=== PATIENT | male | born 1985 | race Caucasian/White ===

== ENCOUNTER 2024-10-03 12:07 | Inpatient (IN) | payer OTHER ==
[2024-10-03 12:36] VITALS: BMI 25.4
[2024-10-03] MEDS ORDERED: MAG HYDROX/AL HYDROX/SIMETH 30 ML UNIT-DOSE CUP PO PRN (13:15)
[2024-10-03] MEDS ORDERED: BENZOCAINE/MENTHOL (CHLORASEPTIC ) LOZENGE MM PRN (13:15)
[2024-10-03] MEDS ORDERED: BENZONATATE 200 MG CAPSULE PO PRN (13:15)
[2024-10-03] MEDS ORDERED: NICOTINE POLACRILEX 2 MG GUM BUC PRN (13:15)
[2024-10-03] MEDS ORDERED: ACETAMINOPHEN 325 MG TABLET (FP) PO PRN (13:15)
[2024-10-03] MEDS ORDERED: BISMUTH SUBSALICYLATE 262 MG/15 ML BTL PO PRN (13:15)
[2024-10-03] MEDS ORDERED: MAGNESIUM HYDROX 2400MG/30ML ORAL SUSPENSION 30 ML CUP PO PRN (13:15)
[2024-10-03] MEDS ORDERED: guaiFENesin 600 MG TABLET.ER (FP) PO PRN (13:15)
[2024-10-03] MEDS ORDERED: ONDANSETRON *ODT* 4 MG TABLET SL PRN (13:15)
[2024-10-03] MEDS ORDERED: POLYETHYLENE GLYCOL (HEALTHYLAX) 3350 17 GM PACKET PO PRN (13:15)
[2024-10-03] MEDS ORDERED: NALOXONE (NARCAN) HCL 4 MG/0.1 ML SPRAY NS PRN (13:15)
[2024-10-03] MEDS ORDERED: IBUPROFEN 400 MG TABLET (FP) PO PRN (13:15)
[2024-10-03] MEDS ORDERED: LOPERAMIDE HCL 2 MG CAPSULE PO PRN (13:15)
[2024-10-03] MEDS ORDERED: DICYCLOMINE HCL 10 MG CAPSULE PO PRN (13:15)
[2024-10-03] MEDS: PANTOPRAZOLE 40 MG TABLET PO SCH (22:23)
[2024-10-03] MEDS: MELATONIN 5 MG TABLETS PO SCH (22:23)
[2024-10-03] MEDS: clonazePAM 1 MG ODT TABLETS SL SCH (22:23)
[2024-10-03] MEDS: levETIRAcetam 250 MG TABLET PO SCH (22:23)
[2024-10-03] MEDS: THIAMINE 100 MG TABLET PO SCH (22:23)
[2024-10-04] MEDS: P-EPHED 60MG/TRIPROLIDI 2.5MG TABLET PO PRN (03:36)
[2024-10-04] MEDS ORDERED: methaDONE HCL 10 MG TABLET (FOR DETOX USE ONLY) PO PRN (09:16)
[2024-10-04] MEDS: methaDONE HCL 10 MG TABLET (FOR DETOX USE ONLY) PO ONE (09:47)
[2024-10-04] MEDS: PRENATAL VITAMINS W/ FOLIC ACID TABLET (FP) PO SCH (09:47)
[2024-10-04] MEDS: CARVEDILOL 25 MG TABLET (FP) PO SCH (09:49)
[2024-10-04 12:20] LABS: HEMATOCRIT 34.8 % (35.4-49); HEMOGLOBIN 11.5 GM/dL (11.7-16.9); MCH 28.8 pg (25.7-33.7); MCHC 33.1 g/dl (32.0-35.9); MEAN CELL VOLUME 86.9 fl (80-96); MEAN PLT VOLUME 8.2 fl (7.5-11.1); PLATELET COUNT 235 10^3/uL (134-434); RBC 4.01 M/mm3 (4.00-5.60); RDW 13.9 % (11.9-15.9); WHITE BLOOD COUNT 3.9 K/mm3 (4.0-10.0)
[2024-10-04 12:47] LABS: CALCIUM 9.1 mg/dL (8.5-10.1)
[2024-10-04 12:48] LABS: ALBUMIN 3.2 g/dl (3.4-5.0); BLOOD UREA NITROGEN 15.8 mg/dL (7-18)
[2024-10-04 12:51] LABS: CREATININE 0.8 mg/dL (0.55-1.3)
[2024-10-04 12:53] LABS: BILIRUBIN,TOTAL 0.5 mg/dL (0.2-1); TOT PROT 6.2 g/dl (6.4-8.2)
[2024-10-04] MEDS: NICOTINE POLACRILEX 2 MG LOZENGE BC PRN (17:16)
[2024-10-04] MEDS: OXYMETAZOLINE 0.05% NASAL SOLUTION 15 ML BOTTLE NS PRN (22:00)
[2024-10-06] MEDS: methaDONE HCL 10 MG TABLET (FOR DETOX USE ONLY) PO ONE (09:34)
[2024-10-06] MEDS: cloNIDine HCL 0.1 MG TABLET PO PRN (16:35)
[2024-10-06] MEDS: METHOCARBAMOL 500 MG TABLET PO PRN (22:11)
[2024-10-07] MEDS: IBUPROFEN 600 MG TABLET (FP) PO PRN (18:59)
[2024-10-08] MEDS: methaDONE HCL 10 MG TABLET (FOR DETOX USE ONLY) PO ONE (09:11)
[2024-10-09 08:47] VITALS: BP 103/57; PULSE 68; RESP 17; TEMP 97.4
== END 2024-10-09 11:41 | disposition other institution (70) | DRG 773 ==
LOC: YASAS 12:07 → Y3N 14:32
PROVIDERS: ADMIT Allergy & Immunology; ATTEND Allergy & Immunology
PROC: HZ2ZZZZ Detoxification Services for Substance Abuse Treatment (ICD-10-PCS; principal; 2024-10-03)
DX: F11.23 Opioid dependence with withdrawal (principal); F12.10 Cannabis abuse, uncomplicated; F19.24 Other psychoactive substance dependence with psychoactive substance-induced mood disorder; F41.9 Anxiety disorder, unspecified; G40.909 Epilepsy, unspecified, not intractable, without status epilepticus; G47.00 Insomnia, unspecified; Z87.01 Personal history of pneumonia (recurrent); Z98.890 Other specified postprocedural states; Z87.820 Personal history of traumatic brain injury
CPT/HCPCS: 0241U-QW; 36415; 80053; 80305; 80307; 85027; 86780; 87811; 93005; 93010

== ENCOUNTER 2024-10-09 12:02 | Inpatient (IN) | payer OTHER ==
[2024-10-09] MEDS ORDERED: IBUPROFEN 600 MG TABLET (FP) PO PRN (15:30)
[2024-10-09] MEDS ORDERED: BENZONATATE 200 MG CAPSULE PO PRN (15:30)
[2024-10-09] MEDS ORDERED: guaiFENesin 600 MG TABLET.ER (FP) PO PRN (15:30)
[2024-10-09] MEDS ORDERED: hydrOXYzine PAMOATE 25 MG CAPSULE (FP) PO PRN (15:30)
[2024-10-09] MEDS ORDERED: NALOXONE (NARCAN) HCL 4 MG/0.1 ML SPRAY NS PRN (15:30)
[2024-10-09] MEDS ORDERED: NALOXONE HCL 0.4 MG/ML VIAL IVPUSH PRN (15:30)
[2024-10-09] MEDS ORDERED: ACETAMINOPHEN 325 MG TABLET (FP) PO PRN (15:30)
[2024-10-09] MEDS ORDERED: BENZOCAINE/MENTHOL (CHLORASEPTIC ) LOZENGE MM PRN (15:30)
[2024-10-09] MEDS ORDERED: LOPERAMIDE HCL 2 MG CAPSULE PO PRN (15:30)
[2024-10-09] MEDS ORDERED: MAGNESIUM HYDROX 2400MG/30ML ORAL SUSPENSION 30 ML CUP PO PRN (15:30)
[2024-10-09] MEDS ORDERED: POLYETHYLENE GLYCOL (HEALTHYLAX) 3350 17 GM PACKET PO PRN (15:30)
[2024-10-09] MEDS ORDERED: MAG HYDROX/AL HYDROX/SIMETH 30 ML UNIT-DOSE CUP PO PRN (15:30)
[2024-10-09] MEDS ORDERED: IBUPROFEN 400 MG TABLET (FP) PO PRN (15:30)
[2024-10-09] MEDS: levETIRAcetam 250 MG TABLET PO SCH (22:21)
[2024-10-09] MEDS: THIAMINE 100 MG TABLET PO SCH (22:21)
[2024-10-09] MEDS: PANTOPRAZOLE 40 MG TABLET PO SCH (22:21)
[2024-10-09] MEDS: clonazePAM 1 MG ODT TABLETS SL SCH (22:21)
[2024-10-09] MEDS: MELATONIN 5 MG TABLETS PO SCH (22:21)
[2024-10-10] MEDS: PRENATAL VITAMINS W/ FOLIC ACID TABLET (FP) PO SCH (10:25)
[2024-10-10] MEDS: CARVEDILOL 25 MG TABLET (FP) PO SCH (10:29)
[2024-10-10] MEDS: OXYMETAZOLINE 0.05% NASAL SOLUTION 15 ML BOTTLE NS PRN (21:23)
[2024-10-11 14:39] VITALS: RESP 18
[2024-10-11] MEDS ORDERED: levETIRAcetam 500 MG TABLET (FP) PO SCH (15:00)
[2024-10-11 17:55] VITALS: BP 131/79; PULSE 90; TEMP 98
[2024-10-11] MEDS ORDERED: traZODone HCL 50 MG TABLET (FP) PO SCH (22:00)
== END 2024-10-11 16:45 | disposition home or self-care (01) | DRG 772 ==
LOC: YASAS 12:02 → Y3W 12:04
PROVIDERS: ADMIT Psychiatry & Neurology Pain Medicine; ATTEND Psychiatry & Neurology Pain Medicine
PROC: HZ42ZZZ Group Counseling for Substance Abuse Treatment, Cognitive-Behavioral (ICD-10-PCS; principal; 2024-10-09)
DX: F11.20 Opioid dependence, uncomplicated (principal); F12.20 Cannabis dependence, uncomplicated; F17.210 Nicotine dependence, cigarettes, uncomplicated; F19.282 Other psychoactive substance dependence with psychoactive substance-induced sleep disorder; F19.280 Other psychoactive substance dependence with psychoactive substance-induced anxiety disorder; F19.24 Other psychoactive substance dependence with psychoactive substance-induced mood disorder; G25.3 Myoclonus; G47.00 Insomnia, unspecified; K43.9 Ventral hernia without obstruction or gangrene; Z20.822 Contact with and (suspected) exposure to COVID-19; R29.6 Repeated falls; Z87.01 Personal history of pneumonia (recurrent); Z86.74 Personal history of sudden cardiac arrest